=== PATIENT | male | born 1995 | race Asian ===

== ENCOUNTER 2017-11-25 17:41 | Emergency (ER) | payer MEDICAID ==
[~2017-11-25] VITALS: Ht 165.1 cm; Wt 59.1 kg
[2017-11-25 18:00] VITALS: BP 122/68
[2017-11-25] MEDS ORDERED: PERTUSS(ACELL),DIPH,TET VAC/PF 0.5 ML VIAL IM ONE (18:00)
[2017-11-25] MEDS ORDERED: BACITRACIN 0.9 GM PACKET OINTMENT TP ONE (18:00)
[2017-11-25] MEDS ORDERED: LIDOCAINE HCL/PF 1% 5 ML VIAL INJ ONE ×2 (18:00→18:15)
== END 2017-11-25 19:15 | disposition home or self-care (01) ==
LOC: EMS 17:44
DX: S81.011A Laceration without foreign body, right knee, initial encounter (principal); W45.8XXA Other foreign body or object entering through skin, initial encounter; W22.8XXA Striking against or struck by other objects, initial encounter; Y93.89 Activity, other specified; Y92.099 Unspecified place in other non-institutional residence as the place of occurrence of the external cause; Y99.8 Other external cause status
CPT/HCPCS: 12002; 73562; 90471; 90715; 99284; J3490